=== PATIENT | female | born 1970 | race Caucasian/White ===

== ENCOUNTER 2024-05-15 15:47 | Emergency (ER) | payer BC, SELFPAY ==
[2024-05-15 16:04] VITALS: BP 189/85; PULSE 74; RESP 20; TEMP 36.9; O2SAT 97; BMI 28.3
[2024-05-15 16:28] VITALS: BP 166/99; PULSE 81; RESP 16; O2SAT 99
--- NOTE | 2024-05-15 16:54 | CRLHL7_ITS ---
For Patients: As a result of the Century Cures Act, medical imaging exams and procedure reports are released immediately into your electronic medical record. You may view this report before your referring provider. If you have questions, please contact your health care provider. Indication: Right flank and abdominal pain Technique: CT abdomen and pelvis after the intravenous administration of 76 cc of Isovue 370 Comparison: None. Findings: 3 millimeter nodule is noted within the right middle lobe which is highly statistically benign as per Fleischner criteria if the patient is at high risk for malignancy consider follow-up chest CT in 1 year. The liver, gallbladder, pancreas, spleen, adrenal glands and kidneys are normal. Urinary bladder is grossly unremarkable. There are no pelvic cysts or masses. The appendix is normal. The hollow viscera is without obstruction, focal bowel wall thickening or adjacent inflammatory stranding. There is no free air, ascites or lymphadenopathy. The abdominal aorta and its major branches are patent and normal in caliber. Soft tissues are unremarkable. Bones are age-appropriate. Impression: No acute intra-abdominal findings or CT findings to explain the given history. Please note that all CT scans at this facility use dose modulation, iterative reconstruction, and/or weight-based dosing when appropriate to reduce radiation dose to as low as reasonably achievable. Dictated by Ander Ferrara MD @ 05/15/2024 6:04:07 PM (Electronically Signed)
--- NOTE | 2024-05-15 17:00 | ED.ABDPAIN ---
HPI - Abdominal Pain General Chief Complaint: Abdominal Pain Stated Complaint: R abdomen/flank pain Time Seen by Provider: 05/15/24 16:12 History of Present Illness HPI narrative: This 53-year-old female comes in reporting right abdominal pain and right flank pain on and off over the past few months but worse recently. She states that it seems to be worse after taking food. She also reports some pain in her right lower back that radiates down the anterior aspect of her right leg to about her knee. She arrives here with normal vital signs. Her blood pressure is a bit elevated. She does not have any fever and reports no symptoms of dysuria, nausea, vomiting, or diarrhea. Related Data Previous Rx's ?Medication ?Instructions ?Recorded cyclobenzaprine 10 mg tablet 10 mg PO TID #15 tabs 05/15/24 ketorolac 10 mg tablet 10 mg PO Q8H 5 days #15 tabs 05/15/24 methylprednisolone 4 mg tablets in See Rx Instructions PO .COMPLEX 05/15/24 a dose pack (Medrol (Jay)) #21 ea Allergies Allergy/AdvReac Type Severity Reaction Status Date / Time No Known Drug Allergies Allergy Verified 05/15/24 16:17 Review of Systems Status of ROS Reports: 10 or more systems reviewed and unremarkable except as noted in History and below Narrative Constitutional: No fevers, no weight gain or loss. Eyes: No discharge. No vision changes. HENT: No congestion, no sore throat, no ear pain. Cardiovascular: No chest pain, no palpitations. Respiratory: No shortness of breath, no wheezes, no cough. Gastrointestinal: No vomiting, no diarrhea. Abdominal pain as described above. Genitourinary: No dysuria, no hematuria. Musculoskeletal: Normal range of motion. Skin: No rashes, no pruritis. Neurological: No dizziness, weakness, sensory change, speech change. Endo/Heme/Allergies: No bruising or bleeding. No polydipsia. Pysch: no suicidality, no anxiety, no insomnia. All other systems reviewed and are negative. Exam Narrative: Exam Narrative: Constitutional: Well-developed, well-nourished, no acute distress. HEENT: Normocephalic, atraumatic. Neck: Normal range of motion. Nontender. Supple. Heart: Regular. No murmurs. Normal rate. Intact distal pulses. Lungs: Clear to auscultation. No chest discomfort. No wheezes, rhonchi, or rales. Abdomen: Normal bowel sounds. Diffuse tenderness in the right abdomen. No rebound tenderness. Genitalia: Deferred. Back: No midline tenderness. Normal range of motion. Pain in the right lower back that radiates down the right leg. Extremities: Normal range of motion. No injury. Skin: Intact. No rash. Warm. No erythema or pallor. Neurologic: No altered sensation. No weakness. Alert and oriented. Psychiatric: No suicidality. No anxiety or depression. No insomnia. Nursing notes and vitals signs are reviewed. Const: Vital Signs, click to edit/add: Vital Signs - 24 hr 05/15/24 16:04 05/15/24 16:28 05/15/24 18:01 Temperature 98.5 F 98.6 F Pulse Rate [Pulse Oximeter] 74 81 67 Respiratory Rate 20 16 16 Blood Pressure [Ri ght Upper Arm] 189/85 H 166/99 H 140/97 H Pulse Oximetry 97 99 100 Oxygen Delivery Me thod Room Air Room Air Room Air Course Vital Signs Vital signs: Initial Vital Signs Temperature 98.5 F 05/15/24 16:04 Temperature Source Temporal Artery Scan 05/15/24 16:04 Pulse Rate 74 05/15/24 16:04 Respiratory Rate 20 05/15/24 16:04 Blood Pressure 189/85 H 05/15/24 16:04 Blood Pressure Mean 119 H 05/15/24 16:04 Blood Pressure Position Sitting 05/15/24 16:04 Pulse Oximetry 97 05/15/24 16:04 Oxygen Delivery Method Room Air 05/15/24 16:04 Vital Signs Temperature 98.5 F 05/15/24 16:04 Pulse Rate 74 05/15/24 16:04 Respiratory Rate 20 05/15/24 16:04 Blood Pressure 189/85 H 05/15/24 16:04 Pulse Oximetry 97 05/15/24 16:04 Oxygen Delivery Method Room Air 05/15/24 16:04 Temperature 98.6 F 05/15/24 18:01 Pulse Rate 67 05/15/24 18:01 Respiratory Rate 16 05/15/24 18:01 Blood Pressure 140/97 H 05/15/24 18:01 Pulse Oximetry 100 05/15/24 18:01 Oxygen Delivery Method Room Air 05/15/24 18:01 MDM - Abdominal Pain MDM Narrative Medical decision making narrative: This patient comes in with right-sided abdominal pain that seems to wrap around to her back. She also reports low back pain radiating down the anterior aspect of her right leg to her knee. I did use bedside ultrasound to evaluate her gallbladder and saw normal findings. A CT scan of her abdomen and pelvis is also obtained also with no acute findings. It does seem that her symptoms are more likely musculoskeletal or nerve mediated. The pain radiating down her leg is suspicious for a lumbar radiculopathy. The patient is okay to be discharged home. I did provide prescription for Toradol, Flexeril, and Medrol Dosepak. I recommended that she follow up with our spine clinic if not improving. Lab Data Labs: Lab Results 05/15/24 05/15/24 Range/Units 17:05 17:10 WBC 6.61 (4.50-11.00) K/uL RBC 4.56 (4.00-5.20) m/uL Hgb 11.9 L (12.0-16.0) gm/dL Hct 37.8 (33.0-51.0) % MCV 83 (80-100) fL MCH 26 (26-34) pg MCHC 32 (32-36) gm/dL RDW Coeff of Lizbeth 14.2 (11.5-15.5) % Plt Count 276 (140-440) K/uL Neut % (Auto) 61.9 (42.0-72.0) % Lymph % (Auto) 28.0 (20-44) % [place] % (Auto) 7.6 (0.0-11.0) % Eos % (Auto) 1.5 (0.0-7.0) % Baso % (Auto) 0.8 (0.0-3.0) % Neut # (Auto) 4.10 (1.7-7.0) K/uL Lymph # (Auto) 1.85 (0.90-2.90) K/uL [place] # (Auto) 0.50 (0.00-0.90) K/UL Eos # (Auto) 0.10 (0.00-0.50) K/uL Baso # (Auto) 0.05 (0.00-0.30) K/uL Abs Immat Gran (auto) 0.01 (0.00-0.30) K/uL Imm/Tot Granulo (auto) 0.2 % Sodium 136 (135-149) mmol/L Potassium 3.9 (3.6-5.1) mmol/L Chloride 104 (96-114) mmol/L Carbon Dioxide 22 (20-32) mmol/L Anion Gap 10 (7-15) mEq/L BUN 11 (7-30) mg/dL Creatinine 0.6 (0.5-1.5) mg/dL Estimated Creat Clear 85.76 Estimated GFR 107 ml/min Glucose 81 (60-115) mg/dL Calcium 9.4 (8.4-10.6) mg/dL Total Bilirubin 0.5 (0.1-1.5) mg/dL Direct Bilirubin 0.1 (0.0-0.5) mg/dL AST 16 (12-35) U/L ALT 11 (4-35) U/L Alkaline Phosphatase 42 (40-150) U/L Total Protein 7.5 (6.0-8.3) g/dL Albumin 4.6 (3.3-5.0) g/dL Lipase 106 (23-300) U/L Urine Color Yellow (Yellow) Urine Appearance Clear (Clear) Urine pH 6.0 (5.0-8.5) Ur Specific [place] 1.010 (1.000-1.030) Urine Protein Negative (Negative) Urine Glucose (UA) Negative (Negative) Urine Ketones Negative (Negative) Urine Blood Negative (Negative) Urine Nitrite Negative (Negative) Urine Bilirubin Negative (Negative) Urine Urobilinogen 0.2 (0.2-1.0) Ur Leukocyte Esterase Negative (Negative) Urine RBC 0-2 (0-2) Urine WBC 0-2 (0-5) Ur Squamous Epith Cells None (None-Few) Urine Bacteria None (None) Discharge Plan Discharge Clinical Impression: Lumbar radiculopathy Additional Instructions: Take medication as prescribed. Follow up with primary physician or spine clinic. For the spine clinic you can arrange an appointment by dialing [phone]. Prescriptions: New cyclobenzaprine 10 mg tablet 10 mg PO TID Qty: 15 0RF ketorolac 10 mg tablet 10 mg PO Q8H 5 Days Qty: 15 0RF methylprednisolone [Medrol (Jay)] 4 mg tablets,dose pack See Rx Instructions .ROUTE .COMPLEX Qty: 21 0RF Rx Instructions: orally per package directions Follow Up/Referrals: Provider,Not a Local [Primary Care Provider] - Stand Alone Forms: [employer] Info Instructions
[2024-05-15 17:16] LABS: Appearance Urine Clear (Clear); Bilirubin Urine Negative (Negative); Blood Urine Negative (Negative); Color Urine Yellow (Yellow); Glucose Urine Negative (Negative); Ketones Urine Negative (Negative); Leukocyte Esterase Urine Negative (Negative); Nitrite Urine Negative (Negative); Protein Urine Negative (Negative); Urobilinogen Urine 0.2 (0.2-1.0)
[2024-05-15 17:19] LABS: Basophils Absolute Auto 0.05 K/uL (0.00-0.30); Basophils Percent Auto 0.8 % (0.0-3.0); Eosinophils Percent Auto 1.5 % (0.0-7.0); Hematocrit 37.8 % (33.0-51.0); Hemoglobin* 11.9 gm/dL (12.0-16.0); Immature Granulocytes Abs Auto 0.01 K/uL (0.00-0.30); Immature Granulocytes Pct Auto 0.2 %; Lymphocytes Absolute Auto 1.85 K/uL (0.90-2.90); Mean Corpuscular HGB Conc 32 gm/dL (32-36); Mean Corpuscular Hemoglobin 26 pg (26-34); Mean Corpuscular Volume 83 fL (80-100); Monocytes Percent Auto 7.6 % (0.0-11.0); Neutrophils Percent Auto 61.9 % (42.0-72.0); Platelet Count* 276 K/uL (140-440); RDW Coefficient of Variation % 14.2 % (11.5-15.5); Red Blood Count 4.56 m/uL (4.00-5.20); White Blood Count* 6.61 K/uL (4.50-11.00)
[2024-05-15 17:23] LABS: Slide Review Reflex No
[2024-05-15 17:32] LABS: Albumin* 4.6 g/dL (3.3-5.0)
[2024-05-15 17:33] LABS: Chloride* 104 mmol/L (96-114); Potassium* 3.9 mmol/L (3.6-5.1); Sodium* 136 mmol/L (135-149)
[2024-05-15 17:35] LABS: Alanine Aminotransferase* 11 U/L (4-35); Alkaline Phosphatase* 42 U/L (40-150); Aspartate Amino Transferase* 16 U/L (12-35); Bilirubin Direct* 0.1 mg/dL (0.0-0.5); Bilirubin Total* 0.5 mg/dL (0.1-1.5); Total Protein* 7.5 g/dL (6.0-8.3)
[2024-05-15 17:36] LABS: Anion Gap 10 mEq/L (7-15); Blood Urea Nitrogen* 11 mg/dL (7-30); Carbon Dioxide* 22 mmol/L (20-32); Creatinine* 0.6 mg/dL (0.5-1.5); Est. Creatinine Clearance* 85.76; Estimated Glomerular Filt Rate 107 ml/min; Glucose* 81 mg/dL (60-115); Lipase* 106 U/L (23-300)
[2024-05-15 17:37] LABS: Calcium* 9.4 mg/dL (8.4-10.6)
[2024-05-15 18:00] LABS: RBC Urine 0-2 (0-2); WBC Urine 0-2 (0-5)
[2024-05-15 18:01] VITALS: BP 140/97; PULSE 67; RESP 16; TEMP 37; O2SAT 100
== END 2024-05-15 19:03 | disposition home or self-care (01) ==
PROVIDERS: Emergency Provider Emergency Medicine Emergency Medical Services
DX: M54.16 Radiculopathy, lumbar region (principal)
CPT/HCPCS: 36415; 74177; 76705; 80048; 80076; 81001; 83690; 85025; 99284; Q9967

== ENCOUNTER 2024-12-17 14:54 | Outpatient (CLI) | payer BC, SELFPAY | END 2024-12-17 14:55 | disposition home or self-care (01) | PROVIDERS: Visit Provider Physician Assistant Medical | DX: R51.9 Headache, unspecified (principal); R03.0 Elevated blood-pressure reading, without diagnosis of hypertension; Z13.6 Encounter for screening for cardiovascular disorders; Z13.29 Encounter for screening for other suspected endocrine disorder; Z11.4 Encounter for screening for human immunodeficiency virus [HIV]; Z11.59 Encounter for screening for other viral diseases | CPT/HCPCS: 80053; 80061; 84443; 86703; 86803 ==

== ENCOUNTER 2025-01-13 13:30 | Outpatient (CLI) | payer BC, SELFPAY ==
--- NOTE | 2025-01-13 13:45 | CRLHL7_ITS ---
For Patients: As a result of the Century Cures Act, medical imaging exams and procedure reports are released immediately into your electronic medical record. You may view this report before your referring provider. If you have questions, please contact your health care provider. Indication: Headaches. Technique: Noncontrast sagittal T1, axial FLAIR, T2, diffusion weighted sequences are provided. No comparisons. Findings: The ventricles, sulci and gyri are normal size, shape and contour for age. The midline structures are centrally located with no evidence of shift. There are no suspicious intra or extra-axial fluid collections. No region of restricted diffusion. Expected flow voids in the cavernous carotids and basilar artery. Miniscule scattered foci of increased T2 signal within the supratentorial white matter that are non-specific. Impression: 1. No radiographic evidence of acute intracranial abnormalities. 2. Miniscule scattered supratentorial white matter change that is non-specific. Differential considerations include changes related to diabetes, hypertension, collagen vascular disease or migranous headaches. Dictated by Brandon Bee MD @ 01/13/2025 2:55:38 PM (Electronically Signed)
== END 2025-01-13 13:31 | disposition home or self-care (01) ==
LOC: MRI 13:31
PROVIDERS: PCP Physician Assistant Medical; Visit Provider Physician Assistant Medical
DX: R51.9 Headache, unspecified (principal)
CPT/HCPCS: 70551

== ENCOUNTER 2025-02-04 12:23 | Outpatient (CLI) | payer BC, SELFPAY ==
[2025-02-04 23:15] LABS: Chlamydia DNA Amplified* NOT DETECTED (No Detected); GC DNA Amplified* NOT DETECTED (No Detected)
[2025-02-06 08:52] LABS: HPV Source Cervix
[2025-02-07 17:23] LABS: Pap Test Digital Imaging Done
== END 2025-02-04 12:24 | disposition home or self-care (01) ==
PROVIDERS: PCP Physician Assistant Medical; Visit Provider Physician Assistant Medical
DX: E78.5 Hyperlipidemia, unspecified (principal); D64.9 Anemia, unspecified; R03.0 Elevated blood-pressure reading, without diagnosis of hypertension; R07.9 Chest pain, unspecified; N95.1 Menopausal and female climacteric states; Z11.3 Encounter for screening for infections with a predominantly sexual mode of transmission
CPT/HCPCS: 80061; 82306; 82607; 82728; 82746; 83540; 83550; 83695; 84630; 87491; 87591; 87624; 87625; 88141; 88142; 88175

== ENCOUNTER 2025-02-05 09:51 | Outpatient (CLI) | payer BC, SELFPAY ==
--- NOTE | 2025-02-05 11:35 | P.ANES_ITS ---
Anesthesia Charges Start Date/Time Anesthesia Start Date: 02/05/25 Anesthesia Start Time: 11:05 Stop Date/Time Anesthesia Stop Date: 02/05/25 Anesthesia Stop Time: 11:36 Coding CPT Codes CPT Codes: MARQUISE LWR INTST NDVT NOS - 02501 ([id number]) P1 - NORMAL HEALTHY PATIENT, QK - PROBATION SUPERVISOR 2-4 CNCRNT ANES PROC, QX - CAKE PULLER SVC W/ MED DIRECTION
--- NOTE | 2025-02-05 11:35 | W.ANESCHARGE ---
Anesthesia Charges Start Date/Time Anesthesia Start Date: 02/05/25 Anesthesia Start Time: 11:05 Stop Date/Time Anesthesia Stop Date: 02/05/25 Anesthesia Stop Time: 11:36 Coding CPT Codes CPT Codes: MARQUISE LWR INTST NDFL NOS - [id number] ([id number]) P1 - NORMAL HEALTHY PATIENT, QK - CHILD AND ADOLESCENT PSYCHOLOGIST 2-4 CNCRNT ANES PROC, QX - INTERVENTIONAL CARDIOLOGIST SVC W/ MED DIRECTION
--- NOTE | 2025-02-05 11:37 | P.ANES_ITS ---
Anesthesia Charges Start Date/Time Anesthesia Start Date: 02/05/25 Anesthesia Start Time: 11:05 Stop Date/Time Anesthesia Stop Date: 02/05/25 Anesthesia Stop Time: 11:36 Coding CPT Codes CPT Codes: MARQUISE LWR INTST NDVA NOS - [id number] ([id number]) P1 - NORMAL HEALTHY PATIENT, QK - BATCHER OPERATOR 2-4 CNCRNT ANES PROC, QX - AIRBRUSH ARTIST SVC W/ MED DIRECTION
--- NOTE | 2025-02-05 11:37 | W.ANESCHARGE ---
Anesthesia Charges Start Date/Time Anesthesia Start Date: 02/05/25 Anesthesia Start Time: 11:05 Stop Date/Time Anesthesia Stop Date: 02/05/25 Anesthesia Stop Time: 11:36 Coding CPT Codes CPT Codes: MARQUISE LWR INTST NDKY NOS - 33264 ([id number]) P1 - NORMAL HEALTHY PATIENT, QK - MOTION PICTURE COMMENTATOR 2-4 CNCRNT ANES PROC, QX - LACE STRIPPER SVC W/ MED DIRECTION
== END 2025-02-05 09:52 | disposition home or self-care (01) ==
LOC: OP CLINIC 09:51
PROVIDERS: PCP Physician Assistant Medical; Visit Provider Surgery
DX: Z12.11 Encounter for screening for malignant neoplasm of colon (principal); Z83.719 Family history of colon polyps, unspecified; D12.2 Benign neoplasm of ascending colon; D12.4 Benign neoplasm of descending colon; K64.8 Other hemorrhoids
CPT/HCPCS: 00811; 00812; 45385; 88305; J2704

== ENCOUNTER 2025-02-17 15:09 | Outpatient (CLI) | payer BC, SELFPAY ==
--- NOTE | 2025-02-17 15:30 | CRLHL7_ITS ---
For Patients: As a result of the Century Cures Act, medical imaging exams and procedure reports are released immediately into your electronic medical record. You may view this report before your referring provider. If you have questions, please contact your health care provider. EXAM: MRI OF THE PELVIS, WITHOUT CONTRAST CLINICAL INDICATION: Sacrococcygeal disorders. COMPARISON PLAIN FILMS: 10/02/2024. COMPARISON CROSS-SECTIONAL IMAGING STUDIES: 05/15/2024 CT abdomen pelvis. TECHNICAL: Axial, sagittal and coronal T1, PD FS and STIR images of the pelvis. FINDINGS: HIP JOINTS: Right: No joint effusion. No subchondral edema or cystic change. Left: No joint effusion. No subchondral edema or cystic change. OSSEOUS STRUCTURES: No fracture, bone marrow contusion or stress change. No marrow replacement process. No evidence for avascular necrosis. MUSCULOTENDINOUS STRUCTURES AND BURSAE: Gluteus Minimus and Medius: No tendon tear or tendinopathy. No muscle atrophy or edema. Bursae: No trochanteric or iliopsoas bursitis. Common Hamstrings: No tendon tear or tendinopathy. Other: Tendons and myotendinous junctions are intact. No muscle atrophy or edema. SOFT TISSUES: No subcutaneous edema, hematoma or fluid collection. OTHER JOINTS: Sacroiliac joints are maintained. Pubic symphysis is maintained. INTRAPELVIC CONTENTS: No mass, fluid collection or adenopathy. No inguinal hernia. NEUROVASCULAR STRUCTURES: No abnormality of the proximal femoral or sciatic nerves. No aneurysmal dilatation of the visualize distal aorta. IMPRESSION: 1. Unremarkable MRI of the pelvis. Dictated by George Arora MD @ 02/18/2025 12:13:22 PM (Electronically Signed)
== END 2025-02-17 15:10 | disposition home or self-care (01) ==
LOC: MRI 15:10
PROVIDERS: PCP Physician Assistant Medical; Visit Provider Physician Assistant Medical
DX: M53.3 Sacrococcygeal disorders, not elsewhere classified (principal)
CPT/HCPCS: 72195

== ENCOUNTER 2025-03-11 11:30 | Outpatient (RCR) | payer BC, SELFPAY ==
--- NOTE | 2025-01-19 12:25 | PT.OPDN ---
PT [facility] Daily Note PT [facility] Daily Note Start: 12/22/24 12:30 Freq: Status: Active Protocol: Document 01/19/25 11:19 CJT (Rec: 01/19/25 12:25 CJT [email or web address]) E-signed By Shaggy Marquez, PT PT OP Daily Progress Note Visit Information Note Type Recert/Progress Note Visit Number 3 Physician Authorized eval and treat Visits Insurance Information Recert Due Date 03/22/25 Insurance Name [employer] Medical Diagnosis Sacroiliac Pain Treating Diagnosis M54.5 - LBP Referring Louise Wang Subjective Preferred Name Abbey Subjective Abbey reports that she has experienced no change in her pain since starting PT 4 weeks ago. Pt is interested in other treatment options. Pain Comments 03/04 Home Exercise Home Exercise Access Code: [email or web address] Comments URL: [email or web address] Date: 01/12/2025 Prepared by: Shaggy Marquez Exercises - Supine Lower Trunk Rotation - 1-2 x daily - 7 x weekly - 1-2 sets - 10-15 reps - Supine Piriformis Stretch - 1-2 x daily - 7 x weekly - 1 sets - 60 seconds hold - Supine Bridge with Mini Lao Ball Between Knees - 1 x daily - 7 x weekly - 2 sets - 15 reps - Child's Pose to Cobra - 1-2 x daily - 7 x weekly - 5 -10 reps -SIJ mobilization with belt Objective Other/Pertinent Slump: negative Objective SLR: negative Sacral thrust: negative SIJ compression: negative SIJ distraction: negative Palpation: pt notes reproduced pain along L lateral border of coccyx, sacrotuberous ligament also very painful with palpation but pt notes this is different from her typical pain Patient Instructed Yes in Risks/Benefits Therapeutic Exercise Therapeutic Exercise 10 Minutes (minutes) Therapeutic Exercise Prone on elbows x 3 minutes : To Restore Prone press-ups x 10 Functional Status Supine sciatic nerve glides x 15 Manual Therapy Techniques Manual Therapy 15 Minutes (minutes) Manual Therapy Grade II PA mobilizations to coccyx to facilitate Techniques motion Gentle STM to B sacral border, Sacro tuberous ligament to reduce tissue tension and improve extensibility. Treatment Minutes Untimed Code 25 Treatment Minutes Timed Code Treatment 25 Minutes Total Treatment Time 50 Billing Units Manual Therapy Units 1 Therapeutic Exercise 1 Units Assessment/Impression Assessment/ Abbey has not made any progress in her pain with PT. Impression Upon further evaluation today, it appears that Abbey's pain is not in her SI joints but along the L lateral border of her coccyx. She reported similar pain with palpation to this region today that she has been experience with extended periods of sitting and sit to stand transfers. Additionally, her sacrotuberous ligament on L was also very painful to palpation. As these structures are quite painful with palpation and she has pain upon standing, I do think that she would benefit from a pelvic PT referral for treatment for stability of these muscle groups. At this time, I would also recommend MRI of her sacrum to rule out any pathology in this region. Pt would like their chart to be held 30 days. If pt does not return to our clinic for additional treatment during that time, this note will serve as pts discharge note. Primary Functional sitting, sit to stand transfers, rolling in bed Limitations Plan of Care Physical Therapy STG - To be completed in 2-3 weeks: Goals 1. Pt will report reduction in sacral pain by factor of 2 so that they may perform all ADLs with tolerable level of pain. 2. Pt will demonstrate ability to perform pelvic tilt with good coordination as indication of appropriate firing of pelvic and lumbar stabilizing muscles to provide greater support for pelvis and lumbar spine. 3. Pt will demonstrate 5/5 MMT for all LE motions without reproduction of pain to provide greater support to pelvis and lumbar spine. 4. Pt will report ability to tolerate 30+ minutes of sitting so that they may sit for meals with family with manageable pain. LTG - To be completed in 6 weeks: 1. Pt to be I with HEP so that they may I manage progression of symptoms. 2. Pt will report ability to roll in bed and sleep through the night without waking due to pain so that they may wake well rested with reduced mental fatigue during working hours. 3. Pt will deny pain with sitting and rolling over in bed so that she may perform these activities with comfort and confidence. 4. Pt will demonstrate negative slump test, SLR, Spurling's compression as indication of reduced pressure on spinal cord and or exiting nerve roots. Daily Plan of Care Continue per POC
== END 2025-06-10 11:33 | disposition home or self-care (01) ==
PROVIDERS: Visit Provider Physician Assistant Medical
DX: M53.3 Sacrococcygeal disorders, not elsewhere classified (principal); Z51.89 Encounter for other specified aftercare
CPT/HCPCS: 97110; 97112; 97140; 97161; 97535